=== PATIENT | female | born 1995 | race Caucasian/White ===

== ENCOUNTER 2016-07-02 11:54 | Emergency (ER) | payer MEDICAID ==
[~2016-07-02] VITALS: Wt 57.0 kg
[2016-07-02] MEDS ORDERED: CEPHALEXIN 500 MG CAP PO STA (13:16)
[2016-07-02] MEDS ORDERED: TRIMETHOPRIM/SULFAMETHOX (DS) TAB PO STA (13:16)
[2016-07-02] MEDS ORDERED: CEPH-443 PO (13:17)
[2016-07-02] MEDS ORDERED: SULF1TAB31 PO (13:17)
--- NOTE | 2016-07-02 13:22 | ERD ---
ER Documentation Chief Complaint Date/Time DATE: 07/02/16 TIME: 13:20 Chief Complaint SWELLING/REDNESS ON RIGHT CALF/ANKLE HPI This is a 21-year-old female presenting to the emergency department complaining of swelling and redness to her right calf since Wednesday. Patient states that on Wednesday there was a spot where she is very itchy and she kept scratching it in the back of her calf, she states that it started getting red on Wednesday and by Wednesday it was swollen with redness. She rates the pain moderate in severity. She denies any restricted range of motion. She does admit to having some swelling around her right ankle. Patient denies any fevers, she denies taking any medications for this. Denies any recent traveling or oral contraceptives ROS All systems reviewed and are negative except as per history of present illness. Medications Home Meds Active Scripts Sulfamethoxazole/Trimethoprim* (Bactrim Ds* Tablet) 1 Each Tablet, 1 TAB PO BID , #14 TAB Prov:JOSE GUADARRAMA PA-C 07/02/16 Cephalexin* (Keflex*) 500 Mg Capsule, 500 MG PO QID for 10 Days, CAP Prov:JOSE GUADARRAMA PA-C 07/02/16 Allergies Allergies: Coded Allergies: No Known Allergy (Unverified , 04/04/15) PMhx/Soc History of Surgery: No Anesthesia Reaction: No Hx Neurological Disorder: No Hx Respiratory Disorders: No Hx Cardiac Disorders: No Hx Psychiatric Problems: No Hx Alcohol Use: Yes (1x week) Hx Substance Use: No Hx Tobacco Use: No Physical Exam Vitals Vital Signs Date Time Temp Pulse Resp B/P Pulse Ox O2 Delivery O2 Flow Rate FiO2 07/02/16 11:58 98.1 90 17 119/73 98 Physical Exam General: WD/WN, in no apparent distress, non-toxic appearing HENT: NC/AT Eyes: Conjunctiva normal Neck: Supple Pulm: Clear to auscultation, normal labored breathing; no wheezing/rales/ rhonchi heard CV: Good capillary refill GI: Non-distended, no guarding Back: No masses Ext: No clubbing, cyanosis, or edema Neuro: Moves on all fours Skin: Erythematous, warm patch on the right posterior calf -demarcated with a skin marker Psych: Normal mood Results 24 hrs Current Medications Medications (Trade) Dose Ordered Sig/Berto Route PRN Reason Start Time Stop Time Status Last Admin Dose Admin Cephalexin (Keflex) 500 mg ONCE STAT PO 07/02/16 13:16 07/02/16 13:17 DC Trimethoprim/ Sulfamethoxazole (Bactrim (Ds)) 1 tab ONCE STAT PO 07/02/16 13:16 07/02/16 13:17 DC Procedures/MDM This is a 21-year-old female presenting to the emergency room with erythema and swelling to her right posterior calf since Wednesday, likely due to cellulitis. Patient is afebrile and appears well. On examination there was no evidence of lymphangitis, I demarcated the erythema with a skin marker. In the ED patient was given Keflex and Bactrim and given a prescription for outpatient. I have discussed to return to the ER in 2 days for a wound check. Discussed return sooner if her condition worsens. Patient had full range of motion. Patient is stable for discharge to home. She understands the plan and management. Departure Diagnosis: Primary Impression: Cellulitis Condition: Stable Patient Instructions: Cellulitis Additional Instructions: Follow up in 2 days in your clinic for wound check. Take all medicines as directed. Return to this facility if you are not improving as expected. JOSE GUADARRAMA PA-C July 02, 2016 13:22
== END 2016-07-02 14:00 | disposition home or self-care (01) ==
LOC: FTE 11:54
DX: L03.115 Cellulitis of right lower limb (principal)
CPT/HCPCS: Z7502; Z7610; 99284